=== PATIENT | female | born 1995 | race Caucasian/White ===

== ENCOUNTER 2017-06-26 10:12 | Emergency (ER) | payer MEDICARE, OTHER ==
[~2017-06-26] VITALS: Ht 157.5 cm; Wt 93.0 kg
[2017-06-26] MEDS ORDERED: SODIUM CHLORIDE 0.9% 1000ML 3,000 ML ONE (10:42)
--- NOTE | 2017-06-26 11:44 | Diagnostic Imaging Report ---
PROCEDURE:CHEST 2 VIEWS TECHNIQUE:PA and lateral chest INDICATION:Cough; fever COMPARISON:None. FINDINGS: Lungs are clear and symmetrically inflated. No pleural effusions. Normal heart size, mediastinal contour and pulmonary vasculature. Intact skeleton. Cholecystectomy clips. CONCLUSION: Normal. No evidence of pneumonia. Dictated by: Ryland Swan M.D. on 06/26/2017 at 11:52 Electronically approved by: Ryland Swan M.D. on 06/26/2017 at 11:52
[2017-06-26 11:52] LABS: BILIRUBIN,URINE NEGATIVE (NEGATIVE); KETONES,URINE NEGATIVE (NEGATIVE); LEUKOCYTE ESTERASE ,URINE NEGATIVE (NEGATIVE); NITRITE,URINE NEGATIVE (NEGATIVE); PROTEIN,URINE DIPSTICK NEGATIVE (NEGATIVE); URINE UROBILINOGEN 0.2 mg/dL (0.2 - 1)
[2017-06-26 12:02] LABS: CLARITY,URINE CLEAR (CLEAR); COLOR,URINE YELLOW (YELLOW)
[2017-06-26 13:14] LABS: EPITHELIAL CELLS,URINE RARE /LPF
== END 2017-06-26 13:38 | disposition home or self-care (01) ==
LOC: ER 10:12
DX: R50.9 Fever, unspecified (principal); R05 Cough; J02.9 Acute pharyngitis, unspecified; Z33.1 Pregnant state, incidental
CPT/HCPCS: 71020; 81001; 87086; 87400; 99282; J7030

== ENCOUNTER 2020-05-05 19:06 | Emergency (ER) | payer SELFPAY ==
[~2020-05-05] VITALS: Ht 157.5 cm; Wt 93.0 kg
[2020-05-05] MEDS ORDERED: KETOROLAC TROMETHAMINE 30 MG/ML VIAL IM STA (19:43)
== END 2020-05-05 20:58 | disposition home or self-care (01) ==
LOC: ER 20:29
DX: M25.562 Pain in left knee (principal); S83.92XA Sprain of unspecified site of left knee, initial encounter; W22.03XA Walked into furniture, initial encounter; Y93.01 Activity, walking, marching and hiking; Y92.89 Other specified places as the place of occurrence of the external cause
CPT/HCPCS: 73562; 99283; J1885

== ENCOUNTER 2021-07-18 21:12 | Emergency (ER) | payer SELFPAY ==
[~2021-07-18] VITALS: Ht 157.5 cm; Wt 93.0 kg
[2021-07-18] MEDS ORDERED: IBUPROFEN 600 MG TAB PO STA (21:21)
[2021-07-18] MEDS ORDERED: HYDROCODON-ACE1 EAC9 PO (22:12)
== END 2021-07-18 22:41 | disposition home or self-care (01) ==
LOC: ER 21:23
DX: S62.396A Other fracture of fifth metacarpal bone, right hand, initial encounter for closed fracture (principal); W22.09XA Striking against other stationary object, initial encounter; Y92.008 Other place in unspecified non-institutional (private) residence as the place of occurrence of the external cause; F17.210 Nicotine dependence, cigarettes, uncomplicated
CPT/HCPCS: 99284